=== PATIENT | male | born 1995 | race African-American/Black ===

== ENCOUNTER 2020-03-01 15:15 | Emergency (ER) | payer OTHER ==
[~2020-03-01] VITALS: Ht 188 cm; Wt 81.7 kg
[2020-03-01 15:47] LABS: ABSOLUTE EOSINOPHILS 0.1 thou/uL (0.0-0.7); ABSOLUTE MONOCYTES 0.5 thou/uL (0.0-1.2); BASOPHILS 0.4 %; EOSINOPHILS 1.1 %; HEMATOCRIT 42.8 % (42.0-52.0); HEMOGLOBIN 14.7 gm/dL (14.0-18.0); LYMPHOCYTES 17.2 %; MCH 33.7 pg (26.0-34.0); MCHC 34.4 g/dL (28.0-37.0); MPV 8.8 fl. (7.2-11.1); NUCLEATED RBCS 0 /100WBC; PLATELET COUNT* 197 thou/uL (150-400); POLYS 72.3 %; RBC 4.37 mil/uL (4.50-6.00); RDW-CV 13.2 % (10.5-14.5); WBC 5.5 thou/uL (4.0-11.0)
[2020-03-01 15:57] LABS: APTT 31.2 Seconds (25.0-31.3); CREATININE 1.4 mg/dL (0.6-1.3); INR 1.1; POTASSIUM 3.3 mmol/L (3.5-5.1); PROTIME 11.5 Seconds (9.20-11.50)
[2020-03-01 16:05] LABS: ALBUMIN 3.8 g/dL (3.4-5.0); MAGNESIUM 1.8 mg/dL (1.8-2.4); TOTAL BILIRUBIN 0.8 mg/dL (<0.1-1.0); TOTAL PROTEIN 6.3 g/dL (6.4-8.2)
[2020-03-01] MEDS ORDERED: MECLIZINE HCL25 M1 PO (17:30)
[2020-03-01 17:57] VITALS: BP 120/70
--- NOTE | 2020-03-02 11:35 | EKG ---
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[employer]: TOM : 1995 Requested By: Jared Atkinson Order Number: [id number] MD: Artemio Billings Measurements Intervals [place] Rate: 80 P: 82 HI: 175 QRS: 71 QRSD: 84 T: 57 QT: 368 QTc: 425 Interpretive Statements Sinus rhythm Probable left atrial enlargement ST elevation suggests acute pericarditis Baseline wander in lead(s) V5 No previous ECG available for comparison Electronically Signed On 03-02-2020 11:35:04 CDT by Artemio Billings [email or web address] <ELECTRONICALLY SIGNED> By: Artemio Billings MD, FACC 03/02/20 1135 1529 1529 Artemio Billings MD, [facility] /EPI
== END 2020-03-01 17:57 | disposition home or self-care (01) ==
LOC: M.ERS 15:15
PROVIDERS: Emergency Medicine Emergency Medical Services
DX: E16.2 Hypoglycemia, unspecified (principal); R42 Dizziness and giddiness